=== PATIENT | male | born 1940 | race Caucasian/White ===

== ENCOUNTER 2017-11-12 20:23 | Observation (INO) | payer OTHER ==
[2017-11-12] MEDS ORDERED: NS 1,000 ML IV ONE (20:54)
--- NOTE | 2017-11-12 20:58 | EDPHY ---
H & P Time Seen by Provider: 11/12/17 20:46 HPI/ROS: CHIEF COMPLAINT: Fever, chills HISTORY OF PRESENT ILLNESS: The patient is a 77-year-old male with recent hemorrhoidal banding by Dr. London who presents emergency department with rigors and fever. Patient states he was doing well yesterday. This morning he woke up not feeling well. He had episode of shaking. He was seen at a [facility] and evaluated by Dr. Garcia (Dr. London's partner). There he had white count of 6. His other laboratory studies were normal. Cultures are pending. He was discharged home. However, after returning home he worsen. Patient states he does not feel well. He has had episodes of rider. He was noted to have return of his fever. The patient describes minimal abdominal discomfort. He has mild shortness of breath. No cough. No nausea or vomiting. Patient denies any rectal pain. No rectal discharge. REVIEW OF SYSTEMS: My complete review of systems is negative except as mentioned in the HPI. Past Medical/Surgical History: Includes hypertension, Parkinson's disease, hypercholesterolemia, hemorrhoids Past surgical history: Includes hemorrhoid banding Social history: The patient does not smoke Smoking Status: Never smoked Physical Exam: Vitals noted. Temperature is 39 degrees. GENERAL: [No acute distress, alert]. HEENT: [Eyes normal to inspection, normal pharynx, no signs of dehydration]. NECK: [No thyromegaly, no lymphadenopathy, supple. RESPIRATORY: [Clear to auscultation bilaterally, no rales, rhonchi or wheezing] . CVS: [Regular rate and rhythm, no rubs, murmurs, or gallops]. ABDOMEN: [Soft, nontender, nondistended, no organomegaly]. Benign BACK: [Normal to inspection, no CVA tenderness]. SKIN: [Normal color, no rash, warm, dry. No pallor]. EXTREMITIES: [No pedal edema, no calf tenderness, no Homans sign or cords, no joint swelling]. NEURO/PSYCH: [Alert and oriented x3, normal mood and affect, normal motor sensory exam. No obvious cranial nerve deficit]. Constitutional: Initial Vital Signs Temperature (C) 39.7 C H 11/12/17 20:51 Heart Rate 86 11/12/17 20:51 Respiratory Rate 20 11/12/17 20:51 Blood Pressure 147/86 H 11/12/17 20:51 O2 Sat (%) 87 L 11/12/17 20:51 O2 Delivery Mode Room Air O2 (L/minute) 2 Allergies/Adverse Reactions: latex Allergy (Mild, Verified 12/05/15 15:42) Rash Home Medications: Medication Instructions Recorded LORazepam [Ativan] 0 mg PO 12/05/15 clonazePAM [KlonOPIN] 1 mg PO 12/05/15 Azilect 11/12/17 Clarinex 11/12/17 Diazepam 11/12/17 HCTZ (*) 11/12/17 Propranolol HCl 11/12/17 Simvastatin 11/12/17 Zaditor 11/12/17 Medical Decision Making ED Course/Re-evaluation: In the emergency department I discussed possible etiologies with the patient. I answered all his questions. IV was placed. Laboratory studies were obtained. A chest x-ray was ordered. 2104: I discussed the case with Dr. Garcia. He was in the emergency department to evaluate the patient. He recommended admission to his service. He felt this was likely related to the banding procedure. I discussed that I would not performed a rectal exam. Dr. Sykes stated I did not need to perform exam as he is already exam the patient. Patient's white count was 7. However, he had a slight shift. Patient has a normal lactic acid. Patient was given acetaminophen 650 mg orally. Differential Diagnosis: My differential includes but is not limited to complication from banding, rectal abscess, bacteremia, sepsis, pneumonia, bronchitis, influenza, urinary tract infection - Data Points Laboratory Results: Laboratory Results 11/12/17 20:44 11/12/17 11/12/17 11/12/17 20:44 20:44 20:44 WBC 7.21 10^3/uL 10^3/uL (3.80-9.50) RBC 5.36 10^6/uL 10^6/uL (4.40-6.38) Hgb 16.3 g/dL g/dL (13.7-17.5) Hct 47.4 % % (40.0-51.0) MCV 88.4 fL fL (81.5-99.8) MCH 30.4 pg pg (27.9-34.1) MCHC 34.4 g/dL g/dL (32.4-36.7) RDW 13.3 % % (11.5-15.2) Plt Count 105 10^3/uL L 10^3/uL (150-400) MPV 10.0 fL fL (8.7-11.7) Neut % (Auto) 90.4 % H % (39.3-74.2) Lymph % (Auto) 6.7 % L % (15.0-45.0) [place] % (Auto) 1.8 % L % (4.5-13.0) Eos % (Auto) 0.4 % L % (0.6-7.6) Baso % (Auto) 0.4 % % (0.3-1.7) Nucleat RBC Rel Count 0.0 % % (0.0-0.2) Absolute Neuts (auto) 6.52 10^3/uL H 10^3/uL (1.70-6.50) Absolute Lymphs (auto) 0.48 10^3/uL L 10^3/uL (1.00-3.00) Absolute Monos (auto) 0.13 10^3/uL L 10^3/uL (0.30-0.80) Absolute Eos (auto) 0.03 10^3/uL 10^3/uL (0.03-0.40) Absolute Basos (auto) 0.03 10^3/uL 10^3/uL (0.02-0.10) Absolute Nucleated RBC 0.00 10^3/uL 10^3/uL (0-0.01) Immature Gran % 0.3 % % (0.0-1.1) Immature Gran # 0.02 10^3/uL 10^3/uL (0.00-0.10) PT 14.1 SEC SEC (12.0-15.0) INR 1.07 (0.83-1.16) APTT 27.6 SEC SEC (23.0-38.0) VBG Lactic Acid Sodium Pending Potassium Pending Chloride Pending Carbon Dioxide Pending Anion Gap Pending BUN Pending Creatinine Pending Estimated GFR Pending Glucose Pending Calcium Pending Total Bilirubin Pending Conjugated Bilirubin Pending Unconjugated Bilirubin Pending AST Pending ALT Pending Alkaline Phosphatase Pending Total Protein Pending Albumin Pending Lipase Pending 11/12/17 20:44 WBC RBC Hgb Hct MCV MCH MCHC RDW Plt Count MPV Neut % (Auto) Lymph % (Auto) [place] % (Auto) Eos % (Auto) Baso % (Auto) Nucleat RBC Rel Count Absolute Neuts (auto) Absolute Lymphs (auto) Absolute Monos (auto) Absolute Eos (auto) Absolute Basos (auto) Absolute Nucleated RBC Immature Gran % Immature Gran # PT INR APTT VBG Lactic Acid 1.7 mmol/L mmol/L (0.7-2.1) Sodium Potassium Chloride Carbon Dioxide Anion Gap BUN Creatinine Estimated GFR Glucose Calcium Total Bilirubin Conjugated Bilirubin Unconjugated Bilirubin AST ALT Alkaline Phosphatase Total Protein Albumin Lipase Medications Given: Discontinued Medications Sodium Chloride (Ns) 1,000 mls @ 0 mls/hr IV EDNOW ONE; Wide Open PRN Reason: Protocol Stop: 11/12/17 20:55 Last Admin: 11/12/17 21:11 Dose: 1,000 mls Ketorolac Tromethamine (Toradol) 30 mg IVP EDNOW ONE Stop: 11/12/17 20:55 Last Admin: 11/12/17 21:11 Dose: 30 mg Departure - Departure Disposition: [facility] Clinical Impression: Rigors Fever Qualifiers: Fever type: unspecified Qualified Code(s): R50.9 - Fever, unspecified Condition: Good Referrals: Irene De La Torre MD [Primary Care Provider] - As per Instructions
[2017-11-12 21:02] LABS: PLATELET COUNT 105 10^3/uL (150-400)
[2017-11-12] MEDS: KETOROLAC 30 MG/1 ML SDV IVP ONE ×2 (21:11→21:19)
[2017-11-12 21:12] LABS: INR 1.07 (0.83-1.16); PROTIME(PATIENT) 14.1 SEC (12.0-15.0)
[2017-11-12] MEDS ORDERED: ACETAMINOPHEN 325 MG TAB PO ONE (21:15)
[2017-11-12] MEDS ORDERED: ONDANSETRON 4 MG/2 ML VIAL IVP PRN (21:42)
[2017-11-12] MEDS ORDERED: OXYCODONE/APAP 5/325 TAB PO PRN (21:42)
--- NOTE | 2017-11-12 22:29 | GHP ---
[f rep st] HISTORY AND PHYSICAL DATE OF ADMISSION: 11/12/2017 CHIEF COMPLAINT: Rigors. HISTORY OF PRESENT ILLNESS: The patient is a 77-year-old gentleman who was seen and treated for grade IV internal hemorrhoids in the office with banding on Monday. This morning, he woke up with rigors, but no fever. He otherwise felt very much in his baseline state of health. He had some tenderness where he had the banding done, a feeling of fullness, but no other issues. The patient was recommended to go to [facility] for evaluation, and he underwent evaluation with CBC and physical exam, which showed a normal white blood cell count of 6 without a shift, and no other signs of clinical issues. The patient's symptoms completely resolved. He was sent home from the emergency room with instructions for close followup. The patient began having more issues this evening after dinner, and felt ice cold. His called an ambulance. He was taken to the emergency room. On admission to the emergency room, he had a temperature of 39.7, some difficulty breathing, shortness of breath. The patient had appropriate initial analysis with EKG and chest x-rays , which were all normal. Laboratory studies showed significant of a left shift and an otherwise normal white blood cell count of 7.2. PAST MEDICAL HISTORY: Significant for hyperlipidemia, hypertension, diverticulosis, Parkinson disease, and hypercholesterolemia. MEDICATIONS: The patient takes medications at home, including lorazepam, propranolol, simvastatin, Azilect, hydrochlorothiazide, multivitamins, valsartan. PAST SURGICAL HISTORY: Left rotator cuff repair and a previous procedure for prolapsed hemorrhoids in 2003. ALLERGIES: Include latex, which is a rash. FAMILY HISTORY: Significant for cardiac arrest in his father, hypertension in his father, and both maternal and paternal grandfathers had hypertension and coronary artery disease. 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 . Denies smoking, alcohol, or drug use. REVIEW OF SYSTEMS: Significant for his current abdominal pain, blood in his stools from his hemorrhoids and tension. All other 8 systems reviewed were negative. PHYSICAL EXAMINATION: VITAL SIGNS: He has a weight of 130, his blood pressure is 110/65, heart rate of 87. Saturation: He is breathing at a rate of 21 and saturating 93% on 2 L of oxygen. GENERAL: He is alert, oriented to person, place, and time. Does not appear to be in distress. HEENT: Sclerae are anicteric. Oropharynx is moist. LUNGS: Clear. HEART: Regular heart tones. ABDOMEN: Soft, nontender to palpation. No visible scars. No peritoneal signs. Groin without edema. He has no lymphadenopathy. 2+/2+ femoral/distal pulses. RECTUM: Exam demonstrates expected bleeding from thrombosed internal hemorrhoids, grade IV external hemorrhoids also. No signs of necrosis or ascending infection or crepitus. LABORATORY STUDIES: I reviewed all laboratory studies personally. Reviewed his medications. IMPRESSION: My impression overall is that of a 77-year-old gentleman with rigors after hemorrhoid banding. This is quite unusual, but we will place him on Zosyn empirically. Restart his home medications in the morning. As the patient does not have any signs of abdominal sepsis, consider Tamiflu for viral pneumonia, although this is not usually seen with a neutrophil shift. The patient and his have had all questions addressed. Discussed this with the emergency room attending and admitted him for observation initially. Transition to oral medications on discharge. /[id number]/MODL MTDD
[2017-11-12] MEDS ORDERED: LORazepam 1 MG TAB PO SCH (23:00)
[2017-11-12] MEDS: PIPERACILLIN/TAZO 3.375 GM/DEX 50 ML IV SCH (23:02)
[2017-11-13 04:44] LABS: PLATELET COUNT 103 10^3/uL (150-400)
[2017-11-13] MEDS: PIPERACILLIN/TAZO 3.375 GM/DEX 50 ML IV SCH ×3 (05:07→15:07)
[2017-11-13] MEDS ORDERED: NS 500 ML IV ONE (06:30)
[2017-11-13] MEDS ORDERED: NS 1,000 ML IV ONE (08:05)
--- NOTE | 2017-11-13 08:11 | SOAPPROG ---
SOAP Progress Note Assessment/Plan: Assessment:no overnight complaints. no abd pain. no rectal pain. no cp or sob. no neuro complaints. afebrile. bp 90-110. comfortable. abd nontender. rectum with soft, normal appearing external hemorrhoids. no rectal tenderness. no perineal tenderness. wbc 6. cr. 1.4. ?transient bacteremia s/ p hemorrhoid banding vs other etiology? elevated creat. will complete short abx course empirically (augmentin on discharge). IV fluid challenge today am with repeat creat later today. assuming lab improvement and no further symptoms , anticipate dc later today. Plan: 11/13/17 08:08 Objective: Vital Signs Temp Pulse Resp BP Pulse Ox 36.5 C 65 14 95/58 L 94 11/13/17 07:46 11/13/17 07:46 11/13/17 07:46 11/13/17 07:46 11/13/17 07:46 Laboratory Results 11/13/17 04:25 11/13/17 04:25 11/12/17 11/13/17 11/14/17 05:59 05:59 05:59 Intake Total 1000 Balance 1000 PT 14.1 SEC (12.0-15.0) 11/12/17 20:44 INR 1.07 (0.83-1.16) 11/12/17 20:44 ICD10 Worksheet Patient Problems: Problems Problem Status Onset Fever Acute Rigors Acute
[2017-11-13 11:51] VITALS: BP 103/58
== END 2017-11-13 16:39 | disposition home or self-care (01) ==
LOC: EDUNIT# → EDBD → F3E 21:56
PROVIDERS: ADMIT Surgery; ATTEND Surgery
DX: R50.9 Fever, unspecified (principal); K64.3 Fourth degree hemorrhoids; K64.8 Other hemorrhoids; E86.9 Volume depletion, unspecified; I10 Essential (primary) hypertension; G20 Parkinson's disease; E78.00 Pure hypercholesterolemia, unspecified; K57.30 Diverticulosis of large intestine without perforation or abscess without bleeding
CPT/HCPCS: 71046; 96360; 99285; G0378; J1885; J2543

== ENCOUNTER 2018-08-07 11:26 | Emergency (ER) | payer OTHER ==
[2018-08-07 12:06] LABS: PLATELET COUNT 182 10^3/uL (150-400)
--- NOTE | 2018-08-07 13:08 | EDPHY ---
H & P Time Seen by Provider: 08/07/18 12:30 HPI/ROS: CHIEF COMPLAINT: Confusion HISTORY OF PRESENT ILLNESS: Patient arrives with his and daughter. He has Parkinson's and has apparently been having some difficulty with his medication compliance recently. He used to take lorazepam at night is been off that for about a week. He has been missing his blood pressure medication in when his went to get his medications refilled, it was also clear that he had been taking his Azilect for the last week. The yesterday he had a brain scan at a functional physician at [facility]. This is for evaluation of his Parkinson's, trying to find alternative therapies to get him off his medications. They had lunch yesterday but the last night he had a pretty significant headache with some nausea but no vomiting. This morning he was asking of his brain scan was today, asked if he was going to work in [place] today. The brain scan was yesterday and the work trip was supposed to be tomorrow. His describes him as mostly confused about timeline and what day it is and what time things are supposed to happen. The patient says he does not remember what he had for dinner last night does not really remember the events of this morning. REVIEW OF SYSTEMS: Eye: Double vision 2 days ago not now ENT: no sore throat Cardiac: no chest pain or syncope Pulmonary: no cough or SOB Abdomen: no vomiting, diarrhea, abdominal pain Musculoskeletal: no back pain or neck pain Skin: no rash Neuro: HPI, only a very mild headache now. Constitutional: no fever : no urinary symptoms A comprehensive 10 point review of systems is otherwise negative aside from elements mentioned in the history of present illness. PAST MEDICAL HISTORY: Includes Parkinson's, hypertension, shoulder surgery Social history: Occasional alcohol none today General Appearance: Alert and conversant, cooperative. Eyes: No scleral icterus. Pupils equal reactive extraocular motion intact. ENT, Mouth: Normal mucous membranes. No tongue laceration or abrasion. Respiratory: Normal respiratory effort, breath sounds equal, lungs are clear to auscultation. Cardiovascular: Regular rate and rhythm. Gastrointestinal: Abdomen is soft and non tender. Neurological: Alert, face symmetric, normal motor and sensory in extremities. [id number] normal bilaterally, good strength in both lower extremities, no pronator drift, speech fluent. He does have trouble with short-term memory. He thinks it is Monday even though today is Monday. He does remember his phone number. He can't remember what he had for dinner last night and does not really remember the events of this morning. Skin: Warm and dry, no rashes. Musculoskeletal: No peripheral edema. Normal range of motion of the neck. Psychiatric: Not agitated. Emergency Department course/MDM: Global confusion more likely due to medications. He does not have signs or symptoms of infection. His presentation would not be classic for transient global amnesia. He did have a previous visit in 2016 for similar symptoms suture thought due to benzodiazepine. In the context of his headache last night would do noncontrast head CT to evaluate for intracranial hemorrhage. 1331: normal head CT per Ismelyi. No bleed. 1400: Results discussed the with family, patient and family are comfortable going home, will resume medications as prescribed, although he has not been on lorazepam for about 1 week and I encouraged him to stay off of it if possible although he has not been sleeping very well. At this time I think it is unlikely he has ischemic or hemorrhagic stroke, partial seizure, metabolic abnormality, intoxication, [employer] infection. Smoking Status: Never smoked Constitutional: Initial Vital Signs Temperature (C) 36 C 08/07/18 11:37 Heart Rate 59 L 08/07/18 11:37 Respiratory Rate 16 08/07/18 11:37 Blood Pressure 170/95 H 08/07/18 11:37 O2 Sat (%) 93 08/07/18 11:37 O2 Delivery Mode Room Air Allergies/Adverse Reactions: latex Allergy (Mild, Verified 12/05/15 15:42) Rash Home Medications: Medication Instructions Recorded Aspirin EC [Aspirin EC 325 mg (*)] 325 mg PO DAILY PRN 11/12/17 Hydrochlorothiazide [HCTZ (*)] 12.5 mg PO DAILY 11/12/17 LORazepam [Ativan 2 mg tab] 2 mg PO HS 11/12/17 Propranolol HCl [Inderal 20mg (*)] 20 mg PO BID 11/12/17 Rasagiline Mesylate [Azilect] 1 mg PO DAILY 11/12/17 Simvastatin [Zocor] 20 mg PO HS 11/12/17 Valsartan 320 mg PO DAILY 11/12/17 Medical Decision Making - Diagnostics EKG Interpretation: 12-lead EKG interpreted by me; official reading is in computer system. My interpretation is sinus rhythm rate 55 otherwise normal. Imaging Results: Imaging Impressions Head CT 08/07/18 13:07 Impression: 1. Mild cerebral atrophy. 2. No acute hemorrhage, hydrocephalus or mass effect. 3. No sinusitis. Findings and recommendations discussed with Emergency Department physician, JAZMINE SMITH at 13:31 hour, 08/07/2018. Final report concurs with initial preliminary interpretation. Imaging: Discussed imaging studies w/ will call clerk Radiologist - Data Points Laboratory Results: Laboratory Results 08/07/18 12:00 08/07/18 12:00 08/07/18 08/07/18 12:00 12:00 WBC 8.53 10^3/uL 10^3/uL (3.80-9.50) RBC 6.11 10^6/uL 10^6/uL (4.40-6.38) Hgb 16.3 g/dL g/dL (13.7-17.5) Hct 48.5 % % (40.0-51.0) MCV 79.4 fL L fL (81.5-99.8) MCH 26.7 pg L pg (27.9-34.1) MCHC 33.6 g/dL g/dL (32.4-36.7) RDW 18.0 % H % (11.5-15.2) Plt Count 182 10^3/uL 10^3/uL (150-400) MPV 9.9 fL fL (8.7-11.7) Neut % (Auto) 67.1 % % (39.3-74.2) Lymph % (Auto) 20.8 % % (15.0-45.0) [place] % (Auto) 10.4 % % (4.5-13.0) Eos % (Auto) 1.1 % % (0.6-7.6) Baso % (Auto) 0.4 % % (0.3-1.7) Nucleat RBC Rel Count 0.0 % % (0.0-0.2) Absolute Neuts (auto) 5.73 10^3/uL 10^3/uL (1.70-6.50) Absolute Lymphs (auto) 1.77 10^3/uL 10^3/uL (1.00-3.00) Absolute Monos (auto) 0.89 10^3/uL H 10^3/uL (0.30-0.80) Absolute Eos (auto) 0.09 10^3/uL 10^3/uL (0.03-0.40) Absolute Basos (auto) 0.03 10^3/uL 10^3/uL (0.02-0.10) Absolute Nucleated RBC 0.00 10^3/uL 10^3/uL (0-0.01) Immature Gran % 0.2 % % (0.0-1.1) Immature Gran # 0.02 10^3/uL 10^3/uL (0.00-0.10) Sodium 139 mEq/L mEq/L (135-145) Potassium 4.1 mEq/L mEq/L (3.5-5.2) Chloride 106 mEq/L mEq/L (97-110) Carbon Dioxide 24 mEq/l mEq/l (22-31) Anion Gap 9 mEq/L mEq/L (6-14) BUN 21 mg/dL mg/dL (7-23) Creatinine 1.1 mg/dL mg/dL (0.7-1.3) Estimated GFR > 60 Glucose 87 mg/dL mg/dL (70-100) Calcium 9.6 mg/dL mg/dL (8.5-10.4) Departure - Departure Disposition: Home, Routine, Self-Care Clinical Impression: Confusion Condition: Good Instructions: Rasagiline (By mouth) Additional Instructions: Normal head CT. Continue medications as prescribed. I recommend you continue to stay off the lorazepam. Referrals: Irene De La Torre MD [Primary Care Provider] - As per Instructions
--- NOTE | 2018-08-07 13:39 | CPEKG ---
Test Reason : OPEN Blood Pressure : / mmHG Vent. Rate : 055 BPM Atrial Rate : 055 BPM P-R Int : 209 ms QRS Dur : 087 ms QT Int : 477 ms P-R-T Axes : 064 003 026 degrees QTc Int : 457 ms Sinus rhythm Confirmed by Jose Andrade ([id number]) on 08/07/2018 1:38:37 PM Referred By: PHYSICIAN ED Confirmed By:Jose Andrade
[2018-08-07 14:23] VITALS: BP 175/94
== END 2018-08-07 14:21 | disposition home or self-care (01) ==
LOC: EDUNIT#
DX: R41.0 Disorientation, unspecified (principal); G20 Parkinson's disease; I10 Essential (primary) hypertension; Z79.899 Other long term (current) drug therapy

== ENCOUNTER 2018-09-29 11:00 | Observation (INO) | payer OTHER ==
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
[2018-09-29 11:52] LABS: PLATELET COUNT 163 10^3/uL (150-400)
[2018-09-29] MEDS ORDERED: KETOROLAC 30 MG/1 ML SDV IVP ONE (13:08)
[2018-09-29] MEDS ORDERED: LIDOCAINE 4%/MENTHOL 1% PATCH TD ONE ×2 (13:41→14:17)
[2018-09-29] MEDS ORDERED: ACETAMINOPHEN 500 MG TAB PO ONE (13:58)
[2018-09-29] MEDS: DIAZEPAM 5 MG TAB PO ONE ×2 (14:45→18:15)
--- NOTE | 2018-09-29 15:17 | CPEKG ---
Test Reason : OPEN Blood Pressure : / mmHG Vent. Rate : 067 BPM Atrial Rate : 068 BPM P-R Int : 206 ms QRS Dur : 082 ms QT Int : 405 ms P-R-T Axes : 050 012 033 degrees QTc Int : 428 ms Sinus rhythm Confirmed by Ash Lucas ([id number]) on 09/29/2018 3:16:53 PM Referred By: ASH LUCAS Confirmed By:Ash Lucas
[2018-09-29] MEDS ORDERED: ONDANSETRON 4 MG/2 ML VIAL IVP PRN (15:20)
[2018-09-29] MEDS ORDERED: LR 1,000 ML IV SCH (15:30)
[2018-09-29] MEDS ORDERED: HYDROmorphONE/DILAUDID 2 MG TAB PO PRN (15:30)
[2018-09-29] MEDS: ACETAMINOPHEN 500 MG TAB PO SCH ×2 (17:09→22:19)
[2018-09-29] MEDS: KETOROLAC 30 MG/1 ML SDV IVP SCH ×2 (17:19→23:55)
[2018-09-29] MEDS: LIDOCAINE 4%/MENTHOL 1% PATCH TD SCH (17:21)
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
[2018-09-29] MEDS ORDERED: LORazepam 1 MG TAB PO PRN (18:42)
[2018-09-29] MEDS ORDERED: ATORVASTATIN CALCIUM 10 MG TAB PO SCH (21:00)
[2018-09-29] MEDS ORDERED: PATCH REMOVAL 1 EA PATCH TD SCH ×3 (21:00)
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
[2018-09-30] MEDS: KETOROLAC 30 MG/1 ML SDV IVP SCH ×2 (06:13→12:26)
[2018-09-30] MEDS ORDERED: PROPRANOLOL HCL 40 MG TAB PO SCH (08:00)
[2018-09-30] MEDS: ACETAMINOPHEN 500 MG TAB PO SCH (08:35)
[2018-09-30] MEDS: LIDOCAINE 4%/MENTHOL 1% PATCH TD SCH (08:46)
[2018-09-30] MEDS ORDERED: Rasagiline Mesylate [Rasagiline Mesylate] 1 MG PO SCH (09:00)
[2018-09-30] MEDS ORDERED: IRBESARTAN 150 MG TAB PO SCH (09:00)
--- NOTE | 2018-09-30 09:25 | TRAUMAPNT ---
Trauma Tertiary Progress Note New Findings: No new findings Assessment/Plan: PAD#1 09/30/2018 Assessment: Doing well. Pain controlled, lung up by CXR, Breath sounds equal Plan: Discharge Subjective: I feel much better Objective: Vital Signs Temp Pulse Resp BP Pulse Ox 36.6 C 68 14 161/89 H 89 L 09/30/18 08:00 09/30/18 08:00 09/30/18 08:00 09/30/18 08:00 09/30/18 08:00 09/29/18 09/30/18 10/01/18 05:59 05:59 05:59 Intake Total 650 Balance 650 - C-Spine Clearance Cervical Spine Cleared: Yes Provider who Cleared Cervical Spine: Danyelle Physical Exam - Physical Exam General Appearance: WD/WN, alert, no apparent distress Respiratory: lungs clear, normal breath sounds Cardiac/Chest: regular rate, rhythm Abdomen: normal bowel sounds, non-tender, soft Male Genitalia: deferred Rectal: deferred Back: Normal inspection Skin: normal color, warm/dry Extremities: other (Not wearing left arm sling as requested) Neuro/Psych: no motor/sensory deficits, alert, normal mood/affect, oriented x 3 Time Spent w/Patient (minutes): 15
[2018-09-30 12:02] VITALS: BP 159/84
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
== END 2018-09-30 14:46 | disposition home or self-care (01) ==
LOC: EDUNIT# → INTOOBSV 15:06 → F3N 16:23
PROVIDERS: ADMIT Surgery; ATTEND Surgery
DX: S27.0XXA Traumatic pneumothorax, initial encounter (principal); S22.32XA Fracture of one rib, left side, initial encounter for closed fracture; S42.135A Nondisplaced fracture of coracoid process, left shoulder, initial encounter for closed fracture; V43.52XA Car driver injured in collision with other type car in traffic accident, initial encounter; Y92.411 Interstate highway as the place of occurrence of the external cause; Y93.9 Activity, unspecified; G20 Parkinson's disease; I10 Essential (primary) hypertension; E78.5 Hyperlipidemia, unspecified
CPT/HCPCS: 71045; 71046; 92523; 93005; 97161; 97165; G0378; 84484-ER; J1885

== ENCOUNTER 2018-10-01 10:37 | Observation (INO) | payer OTHER ==
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
[2018-10-01] MEDS ORDERED: HYDROmorphONE/DILAUDID 2 MG/ML INJ IVP ONE (10:48)
[2018-10-01] MEDS ORDERED: PANTOPRAZOLE SODIUM 40 MG VIAL IVP ONE (10:48)
[2018-10-01] MEDS ORDERED: NS 1,000 ML IV ONE (10:48)
[2018-10-01] MEDS ORDERED: ONDANSETRON 4 MG/2 ML VIAL IVP PRN (11:02)
[2018-10-01] MEDS ORDERED: ONDANSETRON DISINTEGRATING 4 MG TAB PO PRN (11:02)
[2018-10-01] MEDS ORDERED: ACETAMINOPHEN 325 MG TAB PO PRN (11:02)
[2018-10-01 11:14] LABS: PLATELET COUNT 184 10^3/uL (150-400)
[2018-10-01 11:22] LABS: INR 1.07 (0.83-1.16); PROTIME(PATIENT) 13.5 SEC (12.0-15.0)
[2018-10-01] MEDS ORDERED: LORazepam 1 MG TAB PO PRN (11:27)
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
[2018-10-01] MEDS: LIDOCAINE 4%/MENTHOL 1% PATCH TD SCH (15:19)
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
[2018-10-01] MEDS: D5W NS 1,000 ML IV SCH (17:35)
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
[2018-10-01] MEDS: oxyCODONE IR 5 MG TAB PO PRN ×2 (17:54→23:07)
[2018-10-01] MEDS: PANTOPRAZOLE SODIUM 40 MG VIAL IVP SCH (21:39)
[2018-10-01] MEDS: ATORVASTATIN CALCIUM 10 MG TAB PO SCH (21:42)
[2018-10-01] MEDS: PATCH REMOVAL 1 EA PATCH TD SCH (23:35)
[2018-10-02] MEDS: D5W NS 1,000 ML IV SCH ×2 (03:58→22:34)
[2018-10-02] MEDS: oxyCODONE IR 5 MG TAB PO PRN ×3 (07:53→19:33)
[2018-10-02] MEDS: IRBESARTAN 150 MG TAB PO SCH (07:53)
[2018-10-02] MEDS: PANTOPRAZOLE SODIUM 40 MG VIAL IVP SCH (07:54)
[2018-10-02] MEDS: LIDOCAINE 4%/MENTHOL 1% PATCH TD SCH ×2 (07:54→08:46)
[2018-10-02] MEDS: Rasagiline Mesylate [Rasagiline Mesylate] 1 MG PO SCH (08:46)
[2018-10-02] MEDS ORDERED: LR 1,000 ML IV ONE (09:28)
[2018-10-02] MEDS ORDERED: LR 500 ML IV PRN (10:00)
[2018-10-02] MEDS ORDERED: PROMETHAZINE HCL 25 MG/ML INJ IVP PRN (10:00)
[2018-10-02] MEDS ORDERED: NALOXONE HCL 0.4 MG/ML INJ IVP PRN (10:00)
[2018-10-02] MEDS ORDERED: ONDANSETRON 4 MG/2 ML VIAL IVP PRN (10:00)
[2018-10-02] MEDS ORDERED: LABETALOL HCL 5 MG/ML 20 ML MDV IVP PRN (10:00)
[2018-10-02] MEDS ORDERED: ACETAMINOPHEN 500 MG TAB PO PRN (10:00)
[2018-10-02] MEDS ORDERED: PHENYLEPHRINE HCL 100 MCG/ML SYR IVP PRN (10:00)
--- NOTE | 2018-10-02 10:00 | PDANEPAE ---
ANE Past Medical History - Cardiovascular History Hx Hypertension: Yes Hx Arrhythmias: No Hx Chest Pain: No Hx Coronary Artery / Peripheral Vascular Disease: No Hx CHF / Valvular Disease: No Hx Palpitations: No - Pulmonary History Hx COPD: No Hx Asthma/Reactive Airway Disease: No Hx Recent Upper Respiratory Infection: No Hx Oxygen in Use at Home: No Hx Sleep Apnea: No Sleep Apnea Screening Result - Last Documented: Positive - Endocrine History Hx Diabetes: No Hypothyroid: No Hyperthyroid: No Obesity: no - Renal History Hx Renal Disorders: No Renal History Comment: elevated BUN - Liver History Hx Hepatic Disorders: No - Chronic Pain History Chronic Pain: No ANE Review of Systems Review of Systems: - Exercise capacity Exercise capacity: >=4 METS ANE Patient History - Allergies Allergies/Adverse Reactions: latex Allergy (Mild, Verified 10/01/18 10:48) Rash - Home Medications Home Medications: Irbesartan [Avapro] 300 mg PO DAILY 09/29/18 [Last Taken 09/30/18] LORazepam [Ativan (*)] 1 mg PO HS PRN 09/29/18 [Last Taken 09/30/18] Propranolol HCl [Inderal 40mg (*)] 40 mg PO BID@08,17 09/29/18 [Last Taken 09/30 17:00] Rasagiline Mesylate 1 mg PO DAILY 09/29/18 [Last Taken 09/30/18] Simvastatin 20 mg PO HS 09/29/18 [Last Taken 09/30/18] Acetaminophen [Tylenol ES 500 mg (*)] 1,000 mg PO Q8H PRN 10/01/18 [Last Taken Unknown] Ketorolac Tromethamine [Toradol 10mg tab] 1 tab PO Q6 PRN 10/01/18 [Last Taken Unknown] - NPO status NPO Since - Liquids (Date): 10/02/18 NPO Since - Liquids (Time): 00:00 NPO Since - Solids (Date): 10/02/18 NPO Since - Solids (Time): 00:00 - Anes Hx Anes Hx: no prior problems - Smoking Hx Smoking Status: Never smoked Marijuana use: No - Alcohol Use Alcohol Use: Occasionally - Family Anes Hx Family Anes Hx: neg - N/A ANE Labs/Vital Signs - Labs Result Diagrams: 10/02/18 04:40 03/18/19 11:04 - Vital Signs Blood Pressure: 148/84 Heart Rate: 81 Respiratory Rate: 18 O2 Sat (%): 97 Height: 177.8 cm Weight: 74.6 kg ANE Physical Exam - Airway Neck exam: FROM Mallampati Score: Class 2 Mouth exam: normal dental/mouth exam - Pulmonary Pulmonary: no respiratory distress, no rales or rhonchi, clear to auscultation - Cardiovascular Cardiovascular: regular rate and rhythym, no murmur, rub, or gallop - ASA Status ASA Status: II ANE Anesthesia Plan Anesthesia Plan: MAC Total IV Anesthesia: Yes
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
[2018-10-02] MEDS ORDERED: PROPOFOL/EMULSION 500 MG/50 ML BOTTLE IV ONE (10:10)
[2018-10-02] MEDS ORDERED: LIDOCAINE 2% 2 ML INJ ONE ×2 (10:10)
[2018-10-02] MEDS ORDERED: EPINEPHrine 1 MG/10 ML SYR IVP ONE (10:12)
--- NOTE | 2018-10-02 10:32 | GIREPORT ---
[facility] - Endoscopy Department Patient Name: Geovanni Thomas Procedure Date: 10/02/2018 9:56 AM Patient Type: Inpatient Attending MD/ ER Physician: Eloisa Bocanegra MD Procedure: Upper GI endoscopy Indications: Acute post hemorrhagic anemia, Melena Providers: Eloisa Bocanegra MD Medicines: Monitored Anesthesia Care Complications: No immediate complications. Description of Procedure: Prior to procedure patient rolled himself to left as much as possible t o avoid discomfort to left shoulder. After obtaining informed consent, th e endoscope was passed under direct vision. Throughout the procedure, the patient's blood pressure, pulse, and oxygen saturations were monitored continuously. The Endoscope was introduced through the mouth, and advan maría to the duodenal bulb. The upper GI endoscopy was accomplished without difficulty. The patient tolerated the procedure well. Findings: LA Grade B (one or more mucosal breaks greater than 5 mm, not extending between the tops of two mucosal folds) esophagitis with no bleeding was found at the gastroesophageal junction. Moderate inflammation characterized by congestion (edema), erythema and granularity was found in the entire examined stomach. Four non-bleeding gastric ulcers with pigmented material were found in the gastric antrum. The largest lesion was 7 mm in largest dimension. Biops ies were taken with a cold forceps for histology. Estimated blood loss was minimal. Diffuse moderate inflammation characterized by congestion (edema), eryt elliott and granularity was found in the duodenal bulb. Estimated Blood Loss: Estimated blood loss was minimal. Post Op Diagnosis: - LA Grade B reflux esophagitis. - Gastritis. - Non-bleeding gastric ulcers with pigmented material. Biopsied. - Duodenitis. Recommendation: - Await pathology results. - Advance diet as tolerated. - Return patient to [facility] for ongoing care. - OK to begin PPi PO daily once taking PO well for 12 weeks. - No NSAIDS. - Repeat EGD in 3 moths to check healing. - Will sign off. - Thank you for allowing me to participate in the care of your patient. Attending Participation: I personally performed the entire procedure. Eloisa Bocanegra MD Eloisa Bocanegra MD 10/02/2018 10:32:08 AM This report has been signed electronicallyEloisa Bocanegra MD Number of Addenda: 0 Note Initiated On: 10/02/2018 9:56 AM [email or web address]
--- NOTE | 2018-10-02 10:53 | POSTANESTH ---
Post Anesthetic Evaluation Cardiovascular Status: Similar to Pre-Op Cond Respiratory Status: Similar to Pre-op Cond. Level of Consciousness/Mental Status: Can Participate in Eval Pain Control: Adequate, Prn Tx Ordered Nausea/Vomiting Control: Adequate, Prn Tx Ordered Complications Possibly Related to Anesthesia: None Noted
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
[2018-10-02] MEDS: ATORVASTATIN CALCIUM 10 MG TAB PO SCH (19:33)
[2018-10-02] MEDS: ACETAMINOPHEN 500 MG TAB PO PRN (22:33)
[2018-10-03] MEDS: PATCH REMOVAL 1 EA PATCH TD SCH (01:05)
[2018-10-03] MEDS: D5W NS 1,000 ML IV SCH (06:52)
[2018-10-03] MEDS: ACETAMINOPHEN 500 MG TAB PO PRN ×2 (06:52→14:53)
[2018-10-03] MEDS ORDERED: PANTOPRAZOLE SODIUM 40 MG TAB PO SCH (09:00)
[2018-10-03] MEDS: IRBESARTAN 150 MG TAB PO SCH (09:49)
[2018-10-03] MEDS: LIDOCAINE 4%/MENTHOL 1% PATCH TD SCH ×2 (09:49→10:13)
[2018-10-03] MEDS ORDERED: LOPERAMIDE HCL 2 MG CAP PO PRN (10:07)
[2018-10-03] MEDS: Rasagiline Mesylate [Rasagiline Mesylate] 1 MG PO SCH (10:12)
[2018-10-03 13:43] VITALS: BP 144/86
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
== END 2018-10-03 16:39 | disposition home or self-care (01) ==
LOC: EDUNIT# → F1N 12:32
PROVIDERS: ADMIT Internal Medicine; ATTEND Internal Medicine
PROC: 0DB68ZX Excision of Stomach, Via Natural or Artificial Opening Endoscopic, Diagnostic (ICD-10-PCS; principal; 2018-10-02 10:00)
PROC: 0DJ08ZZ Inspection of Upper Intestinal Tract, Via Natural or Artificial Opening Endoscopic (ICD-10-PCS; principal; 2018-10-02 10:00)
DX: K25.0 Acute gastric ulcer with hemorrhage (principal); K21.0 Gastro-esophageal reflux disease with esophagitis; T39.8X5A Adverse effect of other nonopioid analgesics and antipyretics, not elsewhere classified, initial encounter; D62 Acute posthemorrhagic anemia; S22.32XD Fracture of one rib, left side, subsequent encounter for fracture with routine healing; S42.13 Fracture of coracoid process; V43.52XD Car driver injured in collision with other type car in traffic accident, subsequent encounter; G20 Parkinson's disease; I10 Essential (primary) hypertension; E78.5 Hyperlipidemia, unspecified
CPT/HCPCS: 43239; 96374; 96375; 96376; 97116; 97161; 99285; G0378; 82435-PO; 82565-PO; 82947-PO; 84132-PO; 84295-PO; 84520-PO; 85014-ER; J1170; J2270; J2704

== ENCOUNTER → 2018-11-08 | Outpatient (CLI) | payer OTHER ==
[~2018-11-08] MED LIST: IOPAMIDOL (ISOVUE 370) 100 ML BTL IV ONE
== END ==
LOC: FIMAGING 14:28
PROVIDERS: ATTEND Internal Medicine Cardiovascular Disease
DX: R93.89 Abnormal findings on diagnostic imaging of other specified body structures (principal)
CPT/HCPCS: 71275; 74175; Q9967